=== PATIENT | female | born 1975 | race Caucasian/White ===

== ENCOUNTER → 2017-02-08 | Outpatient (REF) | payer BC | LOC: M LAB REF 13:07 | PROVIDERS: ATTEND Obstetrics & Gynecology | DX: Z12.4 Encounter for screening for malignant neoplasm of cervix (principal) ==

== ENCOUNTER → 2017-02-14 | Outpatient (CLI) | payer BC | LOC: M SMT 09:00 | PROVIDERS: ATTEND Obstetrics & Gynecology | DX: Z01.419 Encounter for gynecological examination (general) (routine) without abnormal findings (principal) ==

== ENCOUNTER → 2017-07-23 | Outpatient (CLI) | payer BC | LOC: M RAD 16:14 | DX: Z12.31 Encounter for screening mammogram for malignant neoplasm of breast (principal); Z78.0 Asymptomatic menopausal state | CPT/HCPCS: 77067 ==

== ENCOUNTER 2019-07-03 06:06 | Day surgery (SDC) | payer BC, OTHER ==
[~2019-07-03] VITALS: Ht 167.6 cm; Wt 73.0 kg
[~2019-07-03 06:06] MED LIST: MULTCAP PO; ceFAZolin SOD 2 GM in IV 1 EA IV ONE
[2019-07-03] MEDS ORDERED: ceFAZolin 2 GM/D5W 50 ML IV BAG (J0690 PER 500MG) As Ordered ONE (06:33)
[2019-07-03] MEDS ORDERED: propofoL 500 MG/50 ML VIAL As Ordered ONE (06:57)
[2019-07-03] MEDS ORDERED: LIDOCAINE 2% INJ 100 MG/5 ML SDV (FOR ANES.) As Ordered ONE (06:58)
[2019-07-03] MEDS ORDERED: dexameTHASONE 4 MG/ML 1ML VIAL (J1100) As Ordered ONE ×2 (07:00→07:21)
[2019-07-03] MEDS ORDERED: ONDANSETRON 4MG/2ML VIAL (J2405) As Ordered ONE (07:00)
[2019-07-03] MEDS ORDERED: MIDAZOLAM INJ 2 MG/2 ML VIAL (J2250) As Ordered ONE (07:00)
[2019-07-03] MEDS ORDERED: fentaNYL 100 MCG/2 ML INJECTION (J3010) As Ordered ONE (07:00)
[2019-07-03] MEDS ORDERED: ROPIvacaine 0.5% 30 ML INJECTION (J2795 PER 1MG) As Ordered ONE (07:09)
[2019-07-03] MEDS ORDERED: LIDOCAINE 2% MDV 20 ML VIAL As Ordered ONE (07:09)
[2019-07-03] MEDS ORDERED: methylPREDNISolone SUSP 40 MG/ML (DEPO-medrol) VIAL (J1030) As Ordered ONE (07:09)
[2019-07-03] MEDS ORDERED: BUPIVACAINE HCL 0.25% 30 ML VIAL As Ordered ONE (07:09)
[2019-07-03] MEDS ORDERED: BACITRACIN PWD 50,000 UNITS VIAL As Ordered ONE (07:10)
[2019-07-03] MEDS ORDERED: BUPIVACAINE HCL 0.5% 10 ML VIAL As Ordered ONE (07:21)
[2019-07-03] MEDS ORDERED: ROCURONIUM BROMIDE 50 MG/5 ML VIAL As Ordered ONE (07:23)
[2019-07-03 08:55] VITALS: BP 115/66
--- NOTE | 2019-07-03 09:14 | REP ---
Left foot series: Three views. History: Postop bunionectomy. No comparison images. Findings: Three views left foot are obtained through overlying postoperative dressing. There is a metallic pin is in place transfixing the distal first metatarsal osteotomy. There is some adjacent soft tissue swelling and emphysema. Electronically Signed by Aleksey Marina MD 07/03/2019 12:13 P
--- NOTE | 2019-07-03 18:26 | RO ---
DATE OF PROCEDURE: 07/03/2019 PREPROCEDURE DIAGNOSIS: Hallux valgus deformity left foot. POSTPROCEDURE DIAGNOSIS: Hallux valgus deformity left foot. OPERATIVE PROCEDURE: Rashaun bunionectomy internal screw fixation, 3.0 mm x 22 mm x 1 left foot. SURGEON: Mark Fleming DPM GRAVE DIGGER: None. ANESTHESIA: Local Monitored anesthesia care (MAC). HEMOSTASIS: Ankle pneumatic tourniquet at 200 mmHg for 35 minutes on the left ankle. HARDWARE UTILIZED: Arthrex headless 3.0 x 22 mm headless compression screw. DESCRIPTION OF PROCEDURE: On 07/03/2019, this 43-year-old female was taken from her hospital room to the operating room and placed on the operating room table in supine position. Following the induction of IV sedation and local and regional anesthesia, the left lower extremity was prepped and draped in the usual aseptic manner. Ankle pneumatic tourniquet was rapidly inflated, sterile drape was completed and the following procedure was performed. RASHAUN BUNIONECTOMY, INTERNAL SCREW FIXATION 3.0 MM X 22 MM X 1 LEFT FOOT: Attention was directed to the patient's left foot. There was noted to be a hallux valgus deformity. At this time, a 6 cm incision was placed over the first metatarsophalangeal joint. The incision was deepened to the subcutaneous tissues, and all coursing venous tributaries were identified, underscored, clamped, cut ligated, and electrocoagulated as necessary. A linear capsulotomy was performed in the same plane as the original skin incision. The capsule and periosteal structures were then dissected free in one continuous layer, dorsally, medially and laterally, thus creating a capsular periosteal type envelope. This delivered into view the hypertrophied medial eminence of the first metatarsal which was osteotomized from distal to plantar through and through. The was extirpated from the wound. Attention was directed into the first intermetatarsal space where dissection was carried down to the level of the fibular sesamoid where the conjoined tendon was sharply dissected free from the fibular sesamoid. Attention was directed to the medial surface of the first metatarsal where a V-shaped osteotomy was performed with a long plantar and short dorsal wing. Upon creation of this osteotomy, the capital fragment was transposed approximately 40% of the width of the shaft of the first metatarsal and fixated with a 3.0 x 22 mm headless compression screw. The osteotomy was noted to be stable in all three cardinal planes. The redundant cortical spike was then osteotomized from the dorsal to plantar, through and through, and the medial surface was rasped to a smooth contour. The wound was flushed with copious amounts of dilute bacitracin, neomycin and polymyxin B solution. Attention was directed toward closure where the capsular structures were coapted and maintained using #2-0 Monocryl in a simple interrupted type fashion. The subcutaneous tissues were coapted and maintained using #4-0 Monocryl in a simple interrupted type fashion. Skin incisions were coapted and maintained using #5-0 Monocryl in a continuous subcuticular type fashion. This was additionally reinforced with Steri-Strips. Following the completion of the surgical procedure, approximately 4 mg of dexamethasone sodium phosphorous was instilled proximal to the surgical site. Attention was directed toward bandaging, where a sterile compression bandage was applied consisting of Adaptic, 4 x 4s, 4 x 4 splints, Ilan, Kerlix and Coban. Ankle pneumatic tourniquet was rapidly deflated. Instantaneous capillary refill time was noted in digits 1 through 5 of the patients left foot. The patient having apparently tolerated the surgical procedure well, was taken from the OR to the recovery room for further monitoring by the anesthesia department. Postoperative instructions given upon discharge.
== END 2019-07-03 09:55 | disposition home or self-care (01) ==
LOC: M SDC 06:06
PROVIDERS: ATTEND Podiatrist
DX: M20.12 Hallux valgus (acquired), left foot (principal); Z88.5 Allergy status to narcotic agent; Z91.040 Latex allergy status
CPT/HCPCS: 28296; 73630; 76000; 81025; 88300; 97116; C1713; J0690; J1100; J2250; J2405; J3010

== ENCOUNTER → 2019-12-08 | Outpatient (CLI) | payer BC, OTHER ==
[~2019-12-08] MED LIST changes: -ceFAZolin SOD 2 GM in IV 1 EA IV ONE
[2019-12-08 11:11] LABS: BASO # 0.1 10^3/uL (0.0-0.2); EOS # 0.4 10^3/uL (0.0-0.5); EOS % 6.7 % (0.0-3.0); HEMATOCRIT 40.9 % (36.0-47.0); HEMOGLOBIN 13.3 g/dl (12.0-15.5); LYMPH # 1.6 10^3/uL (1.5-5.0); LYMPH % 25.7 % (24.0-44.0); MEAN CORPUSCULAR HEMOGLOBIN 31.4 pg (27.0-33.0); MEAN CORPUSCULAR HGB CONC 32.5 g/dl (32.0-36.5); MEAN CORPUSCULAR VOLUME 96.7 fl (80.0-96.0); MONO # 0.5 10^3/uL (0.0-0.8); MONO % 8.2 % (0.0-5.0); NEUTROPHILS # 3.6 10^3/uL (1.5-8.5); NEUTROPHILS % 58.2 % (36.0-66.0); PLATELET COUNT, AUTOMATED 271 10^3/uL (150-450); RED BLOOD COUNT 4.23 10^6/uL (4.00-5.40); WHITE BLOOD COUNT 6.2 10^3/uL (4.0-10.0)
[2019-12-08 11:40] LABS: ALBUMIN 3.7 GM/DL (3.2-5.2); ALT/SGPT 21 U/L (12-78); BILIRUBIN,TOTAL 0.4 MG/DL (0.2-1.0); BLOOD UREA NITROGEN 7 MG/DL (7-18); CALCIUM LEVEL 8.4 MG/DL (8.5-10.1); CARBON DIOXIDE LEVEL 26 MEQ/L (21-32); CHLORIDE LEVEL 108 MEQ/L (98-107); CHOLESTEROL LEVEL 170 MG/DL (<200); CHOLESTEROL RISK RATIO 4.594 (<5); CREATININE FOR GFR 0.72 MG/DL (0.55-1.30); FREE T4 0.86 NG/DL (0.76-1.46); GLOMERULAR FILTRATION RATE > 60.0 (>58); GLUCOSE, FASTING 84 MG/DL (70-100); HDL CHOLESTEROL 37 MG/DL (>40); LDL CHOLESTEROL 112 MG/DL (<100); NON-HDL-C 133 MG/DL; POTASSIUM SERUM 4.6 MEQ/L (3.5-5.1); SODIUM LEVEL 139 MEQ/L (136-145); TOTAL PROTEIN 6.8 GM/DL (6.4-8.2); TRIGLYCERIDES LEVEL 106 MG/DL (<150)
== END ==
LOC: M PLALAB 08:34
PROVIDERS: ATTEND Family Medicine
DX: Z13.29 Encounter for screening for other suspected endocrine disorder (principal); Z13.0 Encounter for screening for diseases of the blood and blood-forming organs and certain disorders involving the immune mechanism; Z13.220 Encounter for screening for lipoid disorders

== ENCOUNTER → 2020-01-13 | Outpatient (REF) | payer OTHER, BC | LOC: M LAB REF 15:00 | PROVIDERS: ATTEND Advanced Practice Midwife | DX: Z12.4 Encounter for screening for malignant neoplasm of cervix (principal) | CPT/HCPCS: 87624; G0123 ==

== ENCOUNTER → 2020-01-20 | Outpatient (CLI) | payer BC, OTHER ==
--- NOTE | 2020-01-21 06:33 | REPMRS ---
Patient History The patient states she had a clinical breast exam in December 2019. Family history of breast cancer at age 40 in maternal aunt, colorectal cancer in maternal grandmother, breast cancer at age 60 in paternal grandmother. Digital Woman Screen Mammo: January 20, 2020 - Exam #: [id number] Bilateral CC and MLO view(s) were taken. Technologist: Kaya Obregon, Technologist Prior study comparison: August 19, 2018, bilateral digital mammo screening bilat, performed at [facility]. July 23, 2017, bilateral digital mammo screening bilat, performed at [facility]. FINDINGS: There are scattered fibroglandular densities. The Volpara volumetric breast density category is:B. There has been no change in the appearance of the mammogram from the prior studies. There is a mild amount of scattered fibroglandular density which is fairly symmetric. There is no interval development of dominant mass, architectural distortion, or grouped microcalcification suggestive of malignancy. 3-D tomosynthesis shows no additional findings. Assessment: BI-RADS/ACR category 1 mammogram. Negative Mammogram. Recommendation Routine screening mammogram of both breasts in 1 year (for women over age 40). This patient's Lifetime Breast Cancer Risk is estimated at 16.1 %. This mammogram was interpreted with the aid of an FDA-approved computer-aided dectection system. Electronically Signed By: Danny Marina MD 01/21/20 0633
== END ==
LOC: M WHC 13:31
PROVIDERS: ATTEND Family Medicine
DX: Z12.31 Encounter for screening mammogram for malignant neoplasm of breast (principal)

== ENCOUNTER → 2020-01-20 | Outpatient (CLI) | payer BC ==
--- NOTE | 2020-01-28 17:30 | REP ---
PELVIC ULTRASOUND CLINICAL: Abnormal uterine bleeding, menorrhagia. TECHNIQUE: Transabdominal pelvic ultrasound followed by transvaginal examination for better evaluation of the endometrium and adnexa with color Doppler evaluation of the ovaries. FINDINGS: The bladder is under-distended and grossly normal in appearance measuring 5.3 x 4.5 x 3.8 cm. Heterogeneous anteverted uterus measures 8.4 x 4.3 x 6.3 cm. The endometrial complex measures 7 mm thickness. Anterior intramural fibroid measures 3.3 x 2.4 x 2.9 cm. Left ovary is not visualized on either transabdominal or transvaginal evaluation. The right ovary measures 2.9 x 2.0 x 2.6 cm (RI 0.46) and includes 2.1 x 1.9 x 1.7 cm complex likely physiologic cyst. No pelvic fluid or adnexal mass lesion. IMPRESSION: 1. Heterogeneous uterus with suspected anterior intramural fibroid. 2. Complex likely physiology right ovarian cyst. Left ovary not visualized. MTDD
== END ==
LOC: M WHC 13:25
PROVIDERS: ATTEND Advanced Practice Midwife
DX: N92.6 Irregular menstruation, unspecified (principal)

== ENCOUNTER → 2020-06-05 | Outpatient (CLI) | payer BC, OTHER ==
[~2020-06-05] MED LIST changes: +VITMTA PO
== END ==
LOC: M LABSMTC 10:13
PROVIDERS: ATTEND Anesthesiology
DX: Z01.812 Encounter for preprocedural laboratory examination (principal); Z20.822 Contact with and (suspected) exposure to COVID-19

== ENCOUNTER 2020-06-10 06:08 | Day surgery (SDC) | payer BC, OTHER ==
[~2020-06-10] VITALS: Ht 165.1 cm; Wt 72.6 kg
[~2020-06-10 06:08] MED LIST changes: +LR 1,000 ML IV ONE; +OXYC1TAB23 PO; +ceFAZolin SOD 2 GM in IV 1 EA IV ONE
--- OUTSIDE RECORDS SUMMARY | 2020-06-10 06:17 | CCD ---
Author Author [facility] Organization [facility] Address Unknown Phone Unavailable Care Team Providers Care Letterpress Setter Name Role Phone Mark Fleming DPM Unavailable Unavailable Bernadette, Mark DPM Unavailable Unavailable Bernadette, Mark DPM Unavailable Unavailable Bernadette, Mark DPM Unavailable Unavailable Bernadette, Mark DPM Unavailable Unavailable Bernadette, Mark DPM Unavailable Unavailable Bernadette, Mark DPM Unavailable Unavailable Bernadette, Mark DPM Unavailable Unavailable Bernadette, Mark DPM Unavailable Unavailable Bernadette, Mark DPM Unavailable Unavailable Bernadette, Mark DPM Unavailable Unavailable Bernadette, Mark DPM Unavailable Unavailable Bernadette, Mark DPM Unavailable Unavailable Bernadette, Mark DPM Unavailable Unavailable Bernadette, Mark DPM Unavailable Unavailable Bernadette, Mark DPM Unavailable Unavailable Bernadette, Mark DPM Unavailable Unavailable Bernadette, Mark DPM Unavailable Unavailable Bernadette, Mark DPM Unavailable Unavailable Bernadette, Mark DPM Unavailable Unavailable Bernadette, Mark DPM Unavailable Unavailable Bernadette, Mark DPM Unavailable Unavailable Bernadette, Mark DPM Unavailable Unavailable Bernadette, Mark DPM Unavailable Unavailable Bernadette, Mark DPM Unavailable Unavailable Bernadette, Mark DPM Unavailable Unavailable Bernadette, Mark DPM Unavailable Unavailable Bernadette, Mark DPM Unavailable Unavailable Bernadette, Mark DPM Unavailable Unavailable Bernadette, Mark DPM Unavailable Unavailable Bernadette, Mark DPM Unavailable Unavailable Bernadette, Mark DPM Unavailable Unavailable BUCKY-ALBAN, KYARA DO Unavailable Unavailable BUCKY-ALBAN, KYAAR DO Unavailable Unavailable BUCKY-ALBAN, KYARA DO Unavailable Unavailable BUCKY-ALBAN, KYARA DO Unavailable Unavailable BUCKY-ALBAN, KYARA DO Unavailable Unavailable BUCKY-ALBAN, KYARA DO Unavailable Unavailable BUCKY-ALBAN, KYARA DO Unavailable Unavailable BUCKY-ALBAN, KYARA DO Unavailable Unavailable BUCKY-ALBAN, KYARA DO Unavailable Unavailable BUCKY-ALBAN, KYARA DO Unavailable Unavailable BUCKY-ALBAN, KYARA DO Unavailable Unavailable BUCKY-ALBAN, KYARA DO Unavailable Unavailable BUCKY-ALBAN, KYARA DO Unavailable Unavailable BUCKY-ALBAN, KYARA DO Unavailable Unavailable BUCKY-ALBAN, KYARA DO Unavailable Unavailable BUCKY-ALBAN, KYARA DO Unavailable Unavailable BUCKY-ALBAN, KYARA DO Unavailable Unavailable BUCKY-ALBAN, KYARA DO Unavailable Unavailable BUCKY-ALBAN, KYARA DO Unavailable Unavailable BUCKY-ALBAN, KYARA DO Unavailable Unavailable BUCKY-ALBAN, KYARA DO Unavailable Unavailable BUCKY-ALBAN, KYARA DO Unavailable Unavailable BUCKY-ALBAN, KYARA DO Unavailable Unavailable BUCKY-ALBAN, KYARA DO Unavailable Unavailable BUCKY-ALBAN, KYARA DO Unavailable Unavailable BUCKY-ALBAN, KYARA DO Unavailable Unavailable BUCKY-ALBAN, KYARA DO Unavailable Unavailable BUCKY-ALBAN, KYARA DO Unavailable Unavailable BUCKY-ALBAN, KYARA DO Unavailable Unavailable BUCKY-ALBAN, KYARA DO Unavailable Unavailable BUCKY-ALBAN, KYARA DO Unavailable Unavailable BUCKY-ALBAN, KYARA DO Unavailable Unavailable BUCKY-ALBAN, KYARA DO Unavailable Unavailable BUCKY-ALBAN, KYARA DO Unavailable Unavailable BUCKY-ALBAN, KYARA DO Unavailable Unavailable BUCKY-ALBAN, KYARA DO Unavailable Unavailable BUCKY-ALBAN, KYARA DO Unavailable Unavailable BUCKY-ALBAN, KYARA DO Unavailable Unavailable BUCKY-ALBAN, KYARA DO Unavailable Unavailable BUCKY-ALBAN, KYARA DO Unavailable Unavailable BUCKY-ALBAN, KYARA DO Unavailable Unavailable BUCKY-ALBAN, KYARA DO Unavailable Unavailable BUCKY-ALBAN, KYARA DO Unavailable Unavailable BUCKY-ALBAN, KYARA DO Unavailable Unavailable BUCKY-ALBAN, KYARA DO Unavailable Unavailable BUCKY-ALBAN, KYARA DO Unavailable Unavailable BUCKY-ALBAN, KYARA DO Unavailable Unavailable BUCKY-ALBAN, KYARA DO Unavailable Unavailable BUCKY-ALBAN, KYARA DO Unavailable Unavailable BUCKY-ALBAN, KYARA DO Unavailable Unavailable BUCKY-ALBAN, KYARA DO Unavailable Unavailable BUCKY-ALBAN, KYARA DO Unavailable Unavailable BUCKY-ALBAN, KYARA DO Unavailable Unavailable BUCKY-ALBAN, KYARA DO Unavailable Unavailable BUCKY-ALBAN, KYARA DO Unavailable Unavailable BUCKY-ALBAN, KYARA DO Unavailable Unavailable BUCKY-ALBAN, KYARA DO Unavailable Unavailable BUCKY-ALBAN, KYARA DO Unavailable Unavailable BUCKY-ALBAN, KYARA DO Unavailable Unavailable BUCKY-ALBAN, KYARA DO Unavailable Unavailable BUCKY-ALBAN, KYARA DO Unavailable Unavailable BUCKY-ALBAN, KYARA DO Unavailable Unavailable BUCKY-ALBAN, KYARA DO Unavailable Unavailable BUCKY-ALBAN, KYARA DO Unavailable Unavailable BUCKY-ALBAN, KYARA DO Unavailable Unavailable BUCKY-ALBAN, KYARA DO Unavailable Unavailable BUCKY-ALBAN, KYARA DO Unavailable Unavailable BUCKY-ALBAN, KYARA DO Unavailable Unavailable BUCKY-ALBAN, KYARA DO Unavailable Unavailable BUCKY-ALBAN, KYARA DO Unavailable Unavailable BUCKY-ALBAN, KYARA DO Unavailable Unavailable BUCKY-ALBAN, KYARA DO Unavailable Unavailable BUCKY-ALBAN, YKARA DO Unavailable Unavailable BUCKY-ALBAN, KYARA DO Unavailable Unavailable BUCKY-ALBAN, KYARA DO Unavailable Unavailable BUCKY-ALBAN, KYARA DO Unavailable Unavailable BUCKY-ALBAN, KYARA DO Unavailable Unavailable BUCKY-ALBAN, KYARA DO Unavailable Unavailable BUCKY-ALBAN, KYARA DO Unavailable Unavailable BUCKY-ALBAN, KYARA DO Unavailable Unavailable BUCKY-ALBAN, KYARA DO Unavailable Unavailable BUCKY-ALBAN, KYRAA DO Unavailable Unavailable BUCKY-ALBAN, KYARA DO Unavailable Unavailable BUCKY-ALBAN, KYARA DO Unavailable Unavailable BUCKY-ALBAN, KYARA DO Unavailable Unavailable BUCKY-ALBAN, KYARA DO Unavailable Unavailable BUCKY-ALBAN, KYARA DO Unavailable Unavailable BUCKY-ALBAN, KYARA DO Unavailable Unavailable BUCKY-ALBAN, KYARA DO Unavailable Unavailable BUCKY-ALBAN, KYARA DO Unavailable Unavailable BUCKY-ALBAN, KYARA DO Unavailable Unavailable BUCKY-ALBAN, KYARA DO Unavailable Unavailable BUCKY-ALBAN, KYARA DO Unavailable Unavailable BUCKY-ALBAN, KYARA DO Unavailable Unavailable BUCKY-ALBAN, KYARA DO Unavailable Unavailable BUCKY-ALBAN, KYARA DO Unavailable Unavailable BUCKY-ALBAN, KYARA DO Unavailable Unavailable BUCKY-ALBAN, KYARA DO Unavailable Unavailable BUCKY-ALBAN, KYARA DO Unavailable Unavailable BUCKY-ALBAN, KYARA DO Unavailable Unavailable BUCKY-ALBAN, KYARA DO Unavailable Unavailable BUCKY-ALBAN, KYARA DO Unavailable Unavailable BUCKY-ALBAN, KYARA DO Unavailable Unavailable BUCKY-ALBAN, KYARA DO Unavailable Unavailable BUCKY-ALBAN, KYARA DO Unavailable Unavailable BUCKY-ALBAN, KYARA DO Unavailable Unavailable BUCKY-ALBAN, KYARA DO Unavailable Unavailable BUCKY-ALBAN, KYARA DO Unavailable Unavailable BUCKY-ALBAN, KYARA DO Unavailable Unavailable BUCKY-ALBAN, KYARA DO Unavailable Unavailable BUCKY-ALBAN, KYARA DO Unavailable Unavailable BUCKY-ALBAN, KYARA DO Unavailable Unavailable BUCKY-ALBAN, KYARA DO Unavailable Unavailable BUCKY-ALBAN, KYARA DO Unavailable Unavailable BUCKY-ALBAN, KYARA DO Unavailable Unavailable BUCKY-ALBAN, KYARA DO Unavailable Unavailable BUCKY-ALBAN, KYARA DO Unavailable Unavailable BUCKY-ALBAN, KYARA DO Unavailable Unavailable BUCKY-ALBAN, KYARA DO Unavailable Unavailable BUCKY-ALBAN, KYARA DO Unavailable Unavailable BUCKY-ALBAN, KYARA DO Unavailable Unavailable BUCKY-ALBAN, KYARA DO Unavailable Unavailable BUCKY-ALBAN, KYARA DO Unavailable Unavailable BUCKY-ALBAN, KYARA DO Unavailable Unavailable BUCKY-ALBAN, KYARA DO Unavailable Unavailable BUCKY-ALBAN, KYARA DO Unavailable Unavailable BUCKY-ALBAN, KYARA DO Unavailable Unavailable BUCKY-ALBAN, KYARA DO Unavailable Unavailable BUCKY-ALBAN, KYARA DO Unavailable Unavailable BUCKY-ALBAN, KYARA DO Unavailable Unavailable BUCKY-ALBAN, KYARA DO Unavailable Unavailable BUCKY-ALBAN, KYARA DO Unavailable Unavailable BUCKY-ALBAN, KYARA DO Unavailable Unavailable BUCKY-ALBAN, KYARA DO Unavailable Unavailable BUCKY-ALBAN, KYARA DO Unavailable Unavailable BUCKY-ALBAN, KYARA DO Unavailable Unavailable BUCKY-ALBAN, KYARA DO Unavailable Unavailable BUCKY-ALBAN, KYARA DO Unavailable Unavailable BUCKY-ALBAN, KYARA DO Unavailable Unavailable BUCKY-ALBAN, KYARA DO Unavailable Unavailable BUCKY-ALBAN, KYARA DO Unavailable Unavailable BUCKY-ALABN, KYARA DO Unavailable Unavailable BUCKY-ALBAN, KYARA DO Unavailable Unavailable BUCKY-ALBAN, KYARA DO Unavailable Unavailable BUCKY-ALBAN, KYARA DO Unavailable Unavailable BUCKY-ALBAN, KYARA DO Unavailable Unavailable BUCKY-ALBAN, KYARA DO Unavailable Unavailable BUCKY-ALBAN, KYARA DO Unavailable Unavailable BUCKY-ALBAN, KYARA DO Unavailable Unavailable BUCKY-ALBAN, KYARA DO Unavailable Unavailable BUCKY-ALBAN, KYARA DO Unavailable Unavailable BUCKY-ALBAN, KYARA DO Unavailable Unavailable BUCKY-ALBAN, KYARA DO Unavailable Unavailable BUCKY-ALBAN, KYARA DO Unavailable Unavailable BUCKY-ALBAN, KYARA DO Unavailable Unavailable BUCKY-ALBAN, KYARA DO Unavailable Unavailable BUCKY-ALBAN, KYARA DO Unavailable Unavailable BUCKY-ALBAN, KYARA DO Unavailable Unavailable BUCKY-ALBAN, KYARA DO Unavailable Unavailable BUCKY-ALBAN, KYARA DO Unavailable Unavailable BUCKY-ALBAN, KYARA DO Unavailable Unavailable BUCKY-ALBAN, KYARA DO Unavailable Unavailable Hadian, Sorin Unavailable Unavailable Hadian, Sorin Unavailable Unavailable Hadian, Sorin Unavailable Unavailable Hadian, Sorin Unavailable Unavailable Hadian, Sorin Unavailable Unavailable Hadian, Sorin Unavailable Unavailable Hadian, Sorin Unavailable Unavailable Hadian, Sorin Unavailable Unavailable Hadian, Sorin Unavailable Unavailable Hadian, Sorin Unavailable Unavailable Hadian, Sorin Unavailable Unavailable Hadian, Sorin Unavailable Unavailable Hadian, Sorin Unavailable Unavailable Hadian, Sorin Unavailable Unavailable Hadian, Sorin Unavailable Unavailable Hadian, Sorin Unavailable Unavailable Hadian, Sorin Unavailable Unavailable Hadian, Sorin Unavailable Unavailable Hadian, Sorin Unavailable Unavailable Hadian, Sorin Unavailable Unavailable Hadian, Sorin Unavailable Unavailable Hadian, Sorin Unavailable Unavailable Hadian, Sorin Unavailable Unavailable Hadian, Sorin Unavailable Unavailable Hadian, Sorin Unavailable Unavailable Hadian, Sorin Unavailable Unavailable Hadian, Sorin Unavailable Unavailable Hadian, Sorin Unavailable Unavailable Hadian, Sorin Unavailable Unavailable Hadian, Sorin Unavailable Unavailable Hadian, Sorin Unavailable Unavailable Hadian, Sorin Unavailable Unavailable Hadian, Sorin Unavailable Unavailable Re-disclosure Warning The records that you are about to access may contain information from federally-assisted alcohol or drug abuse programs. If such information is present, then the following federally mandated warning applies: This information has been disclosed to you from records protected by federal confidentiality rules (42 CFR part 2). The federal rules prohibit you from making any further disclosure of this information unless further disclosure is expressly permitted by the written consent of the person to whom it pertains or as otherwise permitted by 42 CFR part 2. A general authorization for the release of medical or other information is NOT sufficient for this purpose. The Federal rules restrict any use of the information to criminally investigate or prosecute any alcohol or drug abuse patient.The records that you are about to access may contain highly sensitive health information, the redisclosure of which is protected by Article 27-F of the [facility] Public Health law. If you continue you may have access to information: Regarding HIV / AIDS; Provided by facilities licensed or operated by the [facility] Office of Mental Health; or Provided by the [facility] Office for People With Developmental Disabilities. If such information is present, then the following [facility] mandated warning applies: This information has been disclosed to you from confidential records which are protected by state law. State law prohibits you from making any further disclosure of this information without the specific written consent of the person to whom it pertains, or as otherwise permitted by law. Any unauthorized further disclosure in violation of state law may result in a fine or prison sentence or both. A general authorization for the release of medical or other information is NOT sufficient authorization for further disc losure. Family History Family Member Name Family Member Gender Family Member Status Date o f Status Description Data Source(s) Unknown Unknown Problem [facility] ([facility]) Unknown Male Problem [facility] ([facility]) Unknown Male Problem [facility] ([facility]) Encounters Encounter Providers Location Date Indications Data Source(s ) Unknown [id number] [facility] [address] 06/08/2020 12:00:00 AM EST eCW1 ([facility]) Outpatient Attender: Sorin Asencio ED-LABPNP 0 09:29:00 AM EST - 05/24/2020 09:30:00 AM EST [id number] [facility] [id number] Patient discharged. Outpatient Attender: KYARA TAM DO [facility] 12/03/2019 11:30:00 AM [facility] Outpatient Referrer: KYARA TAM DO 07/09/2019 01 :20:00 PM EST [facility] Radiology Imaging Outpatient Attender: Mark lFeming DPM ED-LAB 08:14:00 AM EST - 06/13/2019 08:15:00 AM EST M22.12 M79.672 [facility] M22.12 M79.672 Patient discharged. Immunizations Vaccine Date Status Description Data Source(s) Tdap 12/03/2019 12:02:00 PM EDT [facility] Medications Medication Brand Name Start Date Product Form Dose Route Admi nistrative Instructions Pharmacy Instructions Status Indications Reaction Description Data Source(s) 5-325 mg 06/08/2020 12:00:00 AM EST tablet 20 TAKE ONE TO TWO TABLETS BY MOUTH EVERY 6 HOURS NEEDED FOR PAIN MAXIMUM DAILY DOSE = 6 TAKE ONE TO TWO TABLETS BY MOUTH EVERY 6 HOURS NEEDED FOR PAIN MAXIMUM DAILY DOSE = 6 SOLD: 06/08/2020 [facility] Loratadine 10 MG Oral Capsule [Claritin] Claritin 12/03/2019 12 :00:00 AM EDT ORAL active [facility] ([facility]) Immunization Administration Single Or Combination 12/03/2019 12:00:00 AM EDT completed [facility] ([facility]) Medication administered onsite Immunization Adminstration 2+ Single Or Combination 12/03/2019 12:00:00 AM EDT completed [facility] ([facility]) Medication administered onsite 5-325 mg 06/11/2019 12:00:00 AM EST tablet 20 TAKE 1-2 TABLETS BY MOUTH EVERY 6 HOURS NEEDED FOR SEVERE PAIN MAXIMUM DAILY DOSE = 6 TAKE 1-2 TABLETS BY MOUTH EVERY 6 HOURS NEEDED FOR SEVERE PAIN MAXIMUM DAILY DOSE = 6 SOLD: 06/13/2019 [facility] Insurance Providers Payer name Policy type / Coverage type Policy ID Covered libertarian ID Covered libertarian's relationship to [place] Policy [place] Plan Information [facility] [id number] BCBS [place] [id number] [place] [id number] LP [id number] [facility] O [id number] S [id number] [place] WATN PPO [id number] SP [id number] EMPIRE ([facility]) O [id number] P [id number] [employer] BCBS Medigap Part B [id number] Self [id number] [facility] [employer] Maintenance Organization (HMO) [id number] Self [id number] [place] Plan Medigap Part B [id number] [employer] U/W Commercial [id number] Self [id number] [employer] BCBS B [id number] S [id number] [place]AT[place] PPO [id number] SP [id number] [employer] BCBS B [id number] P [id number] [employer] U/W Commercial [id number] Self [id number] [employer] Health Maintenance Organization (HMO) [id number] Self [id number] [employer] Commercial [id number] Self [id number] [employer] Commercial [id number] Self [id number] [facility] O [id number] S [id number] [facility] [id number] 2 [id number] [facility] DIV [id number] Problems, Conditions, and Diagnoses Code Display Name Description Problem Type Effective Dates Data Source(s) M79.672 Pain in left foot PAIN IN LEFT FOOT Diagnosis 06/13 08:14:00 AM [facility] 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, 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, LEFT KNEE Diagnosis 06/13/2019 08:14:00 AM [facility] spital Surgeries/Procedures Procedure Description Date Indications Data Source(s) COLLECTION VENOUS BLOOD VENIPUNCTURE ROUTINE VENIPUNCTURE 12:00:00 AM [facility] BLOOD COUNT COMPLETE AUTO&AUTO DIFRNTL WBC COUNT COMPLETE CB C W/AUTO DIFF WBC 06/13/2019 12:00:00 AM [facility] BASIC METABOLIC PANEL CALCIUM TOTAL METABOLIC PANEL TOTAL CA 06/13/2019 12:00:00 AM [facility] Results ID Date Data Source [id number] 06/05/2020 10:00:00 AM EST [facility] Name Value Range Interpretation Code Description Data Patsy rce(s) Supporting Document(s) SARS coronavirus 2 RNA Not Detected [facility] This lab was ordered by [facility] and reported by [facility]. ID Date Data Source [id number] 05/30/2020 10:14:00 AM EST [facility] Name Value Range Interpretation Code Description Data Patsy rce(s) Supporting Document(s) Respiratory specimen severe acute respir atory syndrome coronavirus 2 (SARS-CoV-2) RNA [facility] This lab was ordered by [facility] and reported by . ID Date Data Source [id number] 05/25/2020 09:58:00 AM [facility] Name Value Range Interpretation Code Description Data Patsy rce(s) Supporting Document(s) SARS-CoV-2 RNA INHOUSE Negative Normal (applies to non-n umeric results) [facility] THIS IS A [facility] REPORTABLE COMMUNICABLE DISEASE. Testing was performed using the [employer] COVID-19 MDx Assay. This test has been authorized by FDA under an (Emergency Use Authorization) EUA for use by authorized laboratories for individuals who are suspected of COVID-19 by their healthcare provider. This test is only authorized for the duration of the declaration that circumstances exist justifying the authorization of emergency use of in vitro diagnostic tests for detection and/or diagnosis of SARS-CoV-2. Methodology: Endpoint RT-PCR. Fact sheets for this EUA assay can be found at the following links: Providers: https://www.Dctio.gov/media/603663/download Patients : https://www.Dctio.gov/media/384136/download THIS IS A [facility] REPORTABLE COMMUNICABLE DISEASE Negative results do not preclude SARS-CoV-2 infection and should not be used as the sole basis for patient management decisions. Negative results must be combined with clinical observations,patient history, and epidemiological information. ID Date Data Source [id number] 12/08/2019 08:40:00 AM EDT [facility] ([facility]) Name Value Range Interpretation Code Description Data Patsy rce(s) Supporting Document(s) Triglycerides Level 106 mg/dL Normal (applies to non-nume georgi results) [facility] ([facility]) LDL Cholesterol 112 mg/dL Above high normal [facility] ([facility]) Cholesterol Level 170 mg/dL Normal (applies to non-numeri c results) [facility] ([facility]) HDL Cholesterol 37 mg/dL Below low normal [facility] ([facility]) Cholesterol Risk Ratio 4.594 Normal (applies to non-n umeric results) [facility] ([facility]) Non-HDL-C 133 mg/dL Normal (applies to non-numeric resul ts) [facility] ([facility]) ID Date Data Source [id number] 12/08/2019 08:40:00 AM EDT [facility] ([facility]) Name Value Range Interpretation Code Description Data Patsy rce(s) Supporting Document(s) White Blood Count 6.2 10 4.0-10.0 Normal (applies to non-numeri c results) [facility] ([facility]) Red Blood Count 4.23 10 4.00-5.40 Normal (applies to non-numeric results) [facility] ([facility]) Hematocrit 40.9 % 36.0-47.0 Normal (applies to non-numeric resul ts) [facility] ([facility]) Hemoglobin 13.3 g/dL 12.0-15.5 Normal (applies to non-numeric resul ts) [facility] ([facility]) Mean Corpuscular Volume 96.7 fl 80.0-96.0 Above high normal [facility] ([facility]) Mean Corpuscular HGB Conc 32.5 g/dL 32.0-36.5 Normal (applies to non-numeric results) [facility] ([facility]) Mean Corpuscular Hemoglobin 31.4 pg 27.0-33.0 Norm al (applies to non-numeric results) [facility] ([facility]) Red Cell Distribution Width 12.7 % 11.5-14.5 Norm al (applies to non-numeric results) [facility] ([facility]) Neutrophils % 58.2 % 36.0-66.0 Normal (applies to non-numeric re sults) [facility] ([facility]) Lymph % 25.7 % 24.0-44.0 Normal (applies to non-numeric resul ts) [facility] Platelet Count, Automated 271 10 150-450 Normal (applies to non-numeric results) [facility] ([facility]) [place] % 8.2 % 0.0-5.0 Above high normal [facility] ([facility]) Immature Granulocyte % 0.2 % 0-3.0 Normal (applies to non-n umeric results) [facility] ([facility]) Eos % 6.7 % 0.0-3.0 Above high normal [facility] ([facility]) Baso % 1.0 % 0.0-1.0 Normal (applies to non-numeric resul ts) [facility] ([facility]) Neutrophils # 3.6 10 1.5-8.5 Normal (applies to non-numeric re sults) [facility] ([facility]) Nucleated Red Blood Cell % 0.0 % 0-0 Normal (applies to n on-numeric results) [facility] ([facility]) Eos # 0.4 10 0.0-0.5 Normal (applies to non-numeric resul ts) [facility] ([facility]) Lymph # 1.6 10 1.5-5.0 Normal (applies to non-numeric resul ts) [facility] ([facility]) Baso # 0.1 10 0.0-0.2 Normal (applies to non-numeric resul ts) [facility] ([facility]) [place] # 0.5 10 0.0-0.8 Normal (applies to non-numeric resul ts) [facility] ([facility]) ID Date Data Source [id number] 12/08/2019 08:40:00 AM EDT [facility] Name Value Range Interpretation Code Description Data Patsy rce(s) Supporting Document(s) Thyroid Stimulating Hormone 1.210 uIU/ML 0.358-3.740 Norm al (applies to non- numeric results) [facility] Free T4 0.86 ng/dL 0.76-1.46 Normal (applies to non-numeric resul ts) [facility] ID Date Data Source [id number] 12/08/2019 08:40:00 AM EDT [facility] Name Value Range Interpretation Code Description Data Patsy rce(s) Supporting Document(s) Blood Urea Nitrogen 7 mg/dL 7-18 Normal (applies to non-nume georgi results) [facility] Glucose, Fasting 84 mg/dL 70-100 Normal (applies to non-numeric results) [facility] Creatinine For GFR 0.72 mg/dL 0.55-1.30 Normal (applies to non -numeric results) [facility] Glomerular Filtration Rate Laboratory test result Normal (applies to non- numeric results) [facility] <content>Units are mL/min/1.73 m2</content>
<content></content>
<content>Chronic Kidney Disease Staging per NKF:</content>
<content></content>
<content>Stage I & II GFR >=60 Normal to Mildly Decreased</content>
<content>Stage III GFR 30- 59 Moderately Decreased</content>
<content>Stage IV GFR 15-29 Severely Decreased</content>
<content>Stage V GFR <15 Very Little GFR Left</content>
<content>ESRD GFR <15 on ACCOUNTING GENERALIST</content>
<content></content> Sodium Level 139 meq/L 136-145 Normal (applies to non-numeric res ults) [facility] ([facility]) Potassium Serum 4.6 meq/L 3.5-5.1 Normal (applies to non-numeric results) [facility] ([facility]) Carbon Dioxide Level 26 meq/L 21-32 Normal (applies to non-num heidy results) [facility] ([facility]) Chloride Level 108 meq/L 98-107 Above high normal [facility] ([facility]) Anion Gap 5 meq/L 8-16 Below low normal [facility] ( [facility]) Calcium Level 8.4 mg/dL 8.5-10.1 Below low normal [facility] ([facility]) Ast/Sgot 14 U/L 7-37 Normal (applies to non-numeric resul ts) [facility] ([facility]) Bilirubin,Total 0.4 mg/dL 0.2-1.0 Normal (applies to non-numeric results) [facility] ([facility]) Alkaline Phosphatase 46 U/L 45-117 Normal (applies to non-num heidy results) [facility] ([facility]) Alt/SGPT 21 U/L 12-78 Normal (applies to non-numeric resul ts) [facility] ([facility]) Total Protein 6.8 GM/DL 6.4-8.2 Normal (applies to non-numeric re sults) [facility] ([facility]) Albumin 3.7 GM/DL 3.2-5.2 Normal (applies to non-numeric resul ts) [facility] ([facility]) Albumin/Globulin Ratio 1.2 1.2-2.2 Normal (applies to non-n umeric results) [facility] ([facility]) ID Date Data Source [id number] 06/13/2019 09:58:00 AM [facility] Name Value Range Interpretation Code Description Data Patsy rce(s) Supporting Document(s) Sodium 141 mmol/L 136-145 Normal (applies to non-numeric resul ts) [facility] Potassium 3.5-5.1 Normal (applies to non-numeric resul ts) [facility] Chloride 104 mmol/L 98-107 Normal (applies to non-numeric resul ts) [facility] Carbon Dioxide CO2 21-32 Normal (applies to non-numer ic results) [facility] Anion Gap 5.0-16.0 Normal (applies to non-numeric resul ts) [facility] BUN 12 mg/dL 7-18 Normal (applies to non-numeric results) [facility] Creatinine,Serum 0.7-1.2 Normal (applies to non-numeric results) [facility] GFR >60 Normal (applies to non-numeric results) [facility] Glucose Level 85 mg/dL 60-99 Normal (applies to non-numeric re sults) [facility] Reference range is only applicable when patient is fasting Note the following drug interference: Sulfasalazine Sulfapyridine Can see falsely depressed Can see falsely elevated result with up to 17% results with up to 11% decrease in measurement increase in measurement Recommend patients be collected for this test prior to administration of either drug. Calcium 8.5-10.1 Normal (applies to non-numeric resul ts) [facility] ID Date Data Source [id number] 06/13/2019 09:20:00 AM [facility] Name Value Range Interpretation Code Description Data Patsy rce(s) Supporting Document(s) White Blood Count 3.5-10.5 Normal (applies to non-numeri c results) [facility] Red Blood Count 3.90-5.00 Normal (applies to non-numeric results) [facility] Hemoglobin 12.0-15.5 Normal (applies to non-numeric resul ts) [facility] Hematocrit 34.9-44.5 Normal (applies to non-numeric resul ts) [facility] Mean Corpuscular Volume 81.2-95.1 Normal (applies to non- numeric results) [facility] Mean Corpuscular Hgb 25.6-32.2 Normal (applies to non-num heidy results) [facility] Mean Corpuscular Hgb Conc 32.0-36.0 Normal (applies to no n-numeric results) [facility] Red Cell Distribution Width 11.9-15.5 Normal (appli es to non-numeric results) [facility] Platelet Count 325 x10 3/uL 150-450 Normal (applies to non-numeric results) [facility] Mean Platelet Volume 9.4-12.4 Normal (applies to non-num heidy results) [facility] Neutrophils% (Auto) 31.0-71.0 Normal (applies to non-nume georgi results) [facility] Lymphocytes% (Auto) 20.0-55.0 Normal (applies to non-nume georgi results) [facility] Monocytes% (Auto) 4.0-12.0 Normal (applies to non-numeri c results) [facility] Eosinophils% (Auto) 1.0-8.0 Normal (applies to non-nume georgi results) [facility] Basophils% (Auto) 0.0-2.0 Normal (applies to non-numeri c results) [facility] Immature Granulocytes% (Auto) 0.0-2.0 Normal (eulalio lies to non-numeric results) [facility] Neutrophils# (Auto) 1.50-6.20 Normal (applies to non-nume georgi results) [facility] Lymphocytes# (Auto) 1.20-4.00 Normal (applies to non-nume georgi results) [facility] Monocytes# (Auto) 0.00-0.90 Normal (applies to non-numeri c results) [facility] Eosinophils# (Auto) 0.00-0.50 Normal (applies to non-nume georgi results) [facility] Basophils# (Auto) 0.00-0.20 Normal (applies to non-numeri c results) [facility] Immature Granulocytes# (Auto) 0.00-7.00 No rmal (applies to non-numeric results) [facility] Procedure Social History Code Duration Value Status Description Data Source(s ) Smoking 05/11/2020 12:00:00 AM EST Never Smoker completed Never S liseth [id number] ([facility]) Smoking 12/03/2019 12:00:00 AM EDT Patient has never smoked co mpleted Patient has never smoked [facility] ([facility]) Vital Signs ID Date Data Source UNK Name Value Range Interpretation Code Description Data Source(s) Oxygen saturation in Arterial blood by Pulse oximetry 98 % 98 % [facility] Body temperature 98.5 [degF] 98.5 [degF] [facility] ([facility]) Respiratory rate 16 /min 16 /min [facility] ( [facility]) Heart rate 82 /min 82 /min [facility] ([facility]) Body mass index (BMI) [Ratio] 25.3 kg/m2 25.3 k g/m2 [facility] ([facility]) Body weight 155.12 [lb_av] 155.12 [lb_av] [facility] ([facility]) Body height 65.6 [in_i] 65.6 [in_i] [facility] ([facility]) 5'5.60" Diastolic blood pressure 78 mm[Hg] 78 mm[Hg] [facility] ([facility]) Systolic blood pressure 124 mm[Hg] 124 mm[Hg] [facility] ([facility])
[2020-06-10 06:34] LABS: HEMATOCRIT 41.2 % (36.0-47.0); HEMOGLOBIN 13.3 g/dl (12.0-15.5); MEAN CORPUSCULAR HEMOGLOBIN 31.1 pg (27.0-33.0); MEAN CORPUSCULAR HGB CONC 32.3 g/dl (32.0-36.5); MEAN CORPUSCULAR VOLUME 96.3 fl (80.0-96.0); PLATELET COUNT, AUTOMATED 271 10^3/uL (150-450); RED BLOOD COUNT 4.28 10^6/uL (4.00-5.40); WHITE BLOOD COUNT 6.7 10^3/uL (4.0-10.0)
[2020-06-10] MEDS ORDERED: BUPIVACAINE HCL 0.25% 30ML VIAL As Ordered ONE (07:11)
[2020-06-10] MEDS ORDERED: fentaNYL 100 MCG/2 ML INJECTION (J3010) As Ordered ONE (08:34)
[2020-06-10] MEDS ORDERED: ACETAMINOPHEN 1000MG 100ML IV BTL (OFIRMEV) (J0131 PER 10MG) As Ordered ONE (08:34)
[2020-06-10] MEDS ORDERED: LIDOCAINE 2% 100MG/5ML SDV (FOR ANES.) As Ordered ONE (08:34)
[2020-06-10] MEDS ORDERED: propofoL 500 MG/50 ML VIAL As Ordered ONE (08:34)
[2020-06-10] MEDS ORDERED: KETAMINE HCL 200 MG/20 ML VIAL As Ordered ONE (08:34)
[2020-06-10] MEDS ORDERED: KETOROLAC 60MG 2ML VIAL As Ordered ONE (08:34)
[2020-06-10] MEDS ORDERED: ePHEDrine SULFATE 25 MG/5 ML(5MG/ML) SYRINGE As Ordered ONE (08:34)
[2020-06-10] MEDS ORDERED: propofoL 200 MG/20 ML VIAL As Ordered ONE (08:34)
[2020-06-10] MEDS ORDERED: HYDROmorphone HCL 2 MG/ML 1ML VIAL (J1170) As Ordered ONE (08:34)
[2020-06-10] MEDS ORDERED: ROCURONIUM BROMIDE 50 MG/5 ML VIAL As Ordered ONE (08:34)
[2020-06-10] MEDS ORDERED: ONDANSETRON 4MG/2ML VIAL As Ordered ONE (08:34)
[2020-06-10] MEDS ORDERED: MIDAZOLAM INJ 2MG/2ML VIAL (J2250 PER 1MG) As Ordered ONE (08:34)
[2020-06-10] MEDS ORDERED: GLYCOPYRROLATE INJ 0.2 MG/ML 2 ML VIAL As Ordered ONE (08:34)
[2020-06-10] MEDS ORDERED: SUGAMMADEX SODIUM 500 MG/5 ML VIAL (BRIDION) As Ordered ONE (08:34)
[2020-06-10] MEDS ORDERED: dexameTHASONE 4 MG/ML 1ML VIAL (J1100 PER 1MG) As Ordered ONE (08:34)
--- NOTE | 2020-06-10 09:48 | ROOPDOC ---
[facility] Report Of Operation Report of Operation DATE OF PROCEDURE: 06/10/20 PREPROCEDURE DIAGNOSES: 1. Abnormal uterine bleeding. POSTPROCEDURE DIAGNOSES: 1. Abnormal uterine bleeding. PROCEDURES PERFORMED: 1. Robotic-assisted laparoscopic hysterectomy. 2. Bilateral salpingectomy. 3. Cystoscopy. SURGEON: Nelson Melo MD OXYGEN SYSTEM TESTER: HARDY Nelson ANESTHESIA: General endotracheal anesthesia. ESTIMATED BLOOD LOSS: 50 mL. INTRAVENOUS FLUIDS: 1100mL lactated Ringer solution. URINE OUTPUT: 100mL. PREPROCEDURE ANTIBIOTICS: 2g Ancef OPERATIVE FINDINGS: The patient with normal-appearing bilateral adnexa and uterus CYSTOSCOPIC FINDING: Normal bladder mucosa, no foreign objects. Bilateral ureteral jets were observed. SPECIMEN: Uterus, cervix, bilateral fallopian tubes DESCRIPTION OF PROCEDURE: After informed consent was obtained and written consent was reviewed, the patient was brought to the operating room, where general endotracheal anesthesia was obtained. She was then placed in lithotomy position, was prepped and draped in a normal sterile fashion. A time-out in the operating room was then performed, identifying the patient, procedure to be performed, as well as drug allergies. A speculum was then placed, revealing the cervix. The anterior and posterior aspects of the cervix were stitched with a 0 Vicryl. The uterus was then sounded to 7cm. A large SetuServ uterine manipulator was then advanced through the cervical os for means to manipulate the uterus. The cervical cap was applied over the cervix, as well as the vaginal sleeve applied into the vagina. The speculum was removed from the patients vagina. A Weiss catheter was then placed and set to gravity. Gloves were changed, and attention was turned to the patients abdomen, where a Veress needle was placed through the umbilicus. A pneumoperitoneum was then obtained with CO2 gas. The supraumbilical area was infused with 0.25% Marcaine. An incision was made in this area, and a 8 mm trocar and sleeve was advanced through this incision. The laparoscope was then replaced, revealing intra-abdominal placement. Three additional port sites were placed, two to the left side of the patient's abdomen and one to the right. These areas was infused with 0.25% Marcaine. Each one of these areas, incisions were made, and 8 mm trocars and sleeves advanced through each one of these incisions under direct visualization. Next, the da Scarlett was then docked, utilizing a camera arm and two operative arms. The patient's abdomen was then surveyed with the above-noted finding. Bilateral salpingectomies were then performed. The fallopian tubes' mesosalpinx was cauterized and ligated with hemostasis noted. Next, the uteroovarian ligaments bilateral were cauterized and ligated with good hemostasis noted. The round ligaments bilaterally were cauterized and ligated with good hemostasis noted. The anterior and posterior aspects of broad ligaments were . The anterior leaf of the broad ligament was cauterized and ligated and dissected along the bladder, creating a bladder flap. The remainder of the broad and cardinal ligaments were then cauterized and ligated with good hemostasis noted. The uterine arteries were skeletonized bilaterally and were cauterized and transected with good hemostasis noted. Anterior and posterior colpotomies were made using monopolar scissors. The uterus was then brought out through the vaginal incision. The surgical sites were inspected and noted to be hemostatic. The vaginal cuff was then closed using 2-0 V-Loc system in a running fashion. Rain was then applied over the surgical field. The pneumoperitoneum was then released. Next, the cystoscopy was then performed. Utilizing a 70-degree cystoscope, it was advanced transurethrally through the bladder. The bladder was surveyed, showing normal bladder mucosa, no foreign bodies. The bilateral ureteral jets were observed. The cystoscope was then removed. The bladder was then drained. Gloves were changed. Attention was then turned to the patients abdomen, where all four port sites were closed with 4-0 Monocryl and dressed with Dermabond. The patient was then taken out of lithotomy position and was awakened from general anesthesia and taken to recovery in stable condition. Counts were correct. Cira Llanes, my assistant counsel, played a central role in the operation. She assisted with port placement, tissue retraction and identification, as well as wound closure. NELSON MELO MD. Jun 10, 2020 09:48
[2020-06-10] MEDS ORDERED: METOCLOPRAMIDE INJ 10MG/2ML VIAL (J2765 PER 1) IV PRN (10:00)
[2020-06-10] MEDS ORDERED: LR 1,000 ML IV SCH (10:00)
[2020-06-10] MEDS ORDERED: PERCOCET 5MG/325MG TAB PO PRN ×2 (10:00→10:30)
[2020-06-10] MEDS ORDERED: fentaNYL 100 MCG/2 ML INJECTION (J3010) IV PRN (10:00)
[2020-06-10] MEDS ORDERED: ONDANSETRON 4MG/2ML VIAL IV PRN (10:00)
[2020-06-10 14:25] VITALS: BP 130/70
[2020-06-10] MEDS ORDERED: KETOROLAC 30 MG/ML 1ML VIAL IV SCH (16:00)
== END 2020-06-10 15:12 | disposition home or self-care (01) ==
LOC: M SDC 06:08
PROVIDERS: ATTEND Obstetrics & Gynecology
DX: N92.0 Excessive and frequent menstruation with regular cycle (principal); N80.0 Endometriosis of uterus; D25.9 Leiomyoma of uterus, unspecified; Z91.040 Latex allergy status; Z87.891 Personal history of nicotine dependence
CPT/HCPCS: 36415; 58571; 81025; 85027; 86850; 86900; 86901; 88307; J0131; J0690; J1100; J1170; J1885; J2250; J2405; J3010; S2900

== ENCOUNTER → 2021-01-12 | Outpatient (CLI) | payer BC, OTHER ==
[~2021-01-12] MED LIST changes: -LR 1,000 ML IV ONE; -ceFAZolin SOD 2 GM in IV 1 EA IV ONE
[2021-01-12 16:57] LABS: BASO # 0.1 10^3/uL (0.0-0.2); BASO % 1.1 % (0.0-1.0); EOS # 0.2 10^3/uL (0.0-0.5); EOS % 3.3 % (0.0-3.0); HEMATOCRIT 43.3 % (36.0-47.0); HEMOGLOBIN 14.1 g/dl (12.0-15.5); LYMPH # 1.6 10^3/uL (1.5-5.0); LYMPH % 23.1 % (24.0-44.0); MEAN CORPUSCULAR HEMOGLOBIN 31.4 pg (27.0-33.0); MEAN CORPUSCULAR HGB CONC 32.6 g/dl (32.0-36.5); MEAN CORPUSCULAR VOLUME 96.4 fl (80.0-96.0); MONO # 0.4 10^3/uL (0.0-0.8); MONO % 6.1 % (2.0-8.0); NEUTROPHILS # 4.7 10^3/uL (1.5-8.5); NEUTROPHILS % 66.3 % (36.0-66.0); PLATELET COUNT, AUTOMATED 308 10^3/uL (150-450); RED BLOOD COUNT 4.49 10^6/uL (4.00-5.40); WHITE BLOOD COUNT 7.1 10^3/uL (4.0-10.0)
[2021-01-12 17:23] LABS: ALBUMIN 3.8 GM/DL (3.2-5.2); ALT/SGPT 26 U/L (12-78); AMYLASE 37 U/L (25-115); BILIRUBIN,TOTAL 0.5 MG/DL (0.2-1.0); BLOOD UREA NITROGEN 12 MG/DL (7-18); CALCIUM LEVEL 8.5 MG/DL (8.5-10.1); CARBON DIOXIDE LEVEL 26 MEQ/L (21-32); CHLORIDE LEVEL 107 MEQ/L (98-107); CHOLESTEROL LEVEL 224 MG/DL (<200); CHOLESTEROL RISK RATIO 6.054 (<5); CREATININE FOR GFR 0.82 MG/DL (0.55-1.30); GLOMERULAR FILTRATION RATE > 60.0 (>58); GLUCOSE, FASTING 86 MG/DL (70-100); HDL CHOLESTEROL 37 MG/DL (>40); LDL CHOLESTEROL 151 MG/DL (<100); LIPASE 143 U/L (73-393); NON-HDL-C 187 MG/DL; POTASSIUM SERUM 4.3 MEQ/L (3.5-5.1); SODIUM LEVEL 139 MEQ/L (136-145); TOTAL PROTEIN 7.3 GM/DL (6.4-8.2); TRIGLYCERIDES LEVEL 182 MG/DL (<150)
[2021-01-12 17:53] LABS: CA 125 8.2 U/ML (<30.2)
== END ==
LOC: M WUC 12:46
PROVIDERS: ATTEND Family Medicine
DX: Z13.29 Encounter for screening for other suspected endocrine disorder (principal); Z13.0 Encounter for screening for diseases of the blood and blood-forming organs and certain disorders involving the immune mechanism; Z13.220 Encounter for screening for lipoid disorders; R14.0 Abdominal distension (gaseous); R68.81 Early satiety; R14.2 Eructation; R11.0 Nausea

== ENCOUNTER → 2021-01-17 | Outpatient (CLI) | payer BC, OTHER ==
[~2021-01-17] MED LIST changes: +GASTROGRAFIN SOLUTION 30ML (Q9963) As Ordered ONE; +ISOVUE-370 76% 100ML VIAL As Ordered ONE
--- NOTE | 2021-01-17 14:21 | REP ---
INDICATION: EARLY SATIETY, BLOATING, NAUSEA. COMPARISON: None. TECHNIQUE: Standard helical technique after the intravenous administration of 100 cc Isovue 370 and oral bowel preparatory contrast administration. FINDINGS: The lung bases are clear. Subtle focal decreased density seen in the liver medial segment left lobe. There are no enhancing hepatic lesions. The gallbladder, spleen, pancreas, adrenal glands, and kidneys are within normal limits. The abdominal aorta and para-aortic regions are within normal limits. The bowel loops and the mesenteries are within normal limits. There is no evidence of a mass or adenopathy. There is no free fluid or free air. The osseous structures are within normal limits. IMPRESSION: There is a subtle degree of decreased density in the liver as described above likely a small area of focal fatty infiltration. There are no enhancing hepatic lesions. The examination is otherwise unremarkable. If the patient is experiencing symptoms referable to the liver than I would recommend follow-up with pre and post gadolinium enhanced hepatic MRI. <Electronically signed by Joe Messer > 01/17/21 [id number]
== END ==
LOC: M RAD 12:13
PROVIDERS: ATTEND Family Medicine
DX: R68.81 Early satiety (principal); R11.0 Nausea; R14.0 Abdominal distension (gaseous); K76.0 Fatty (change of) liver, not elsewhere classified
CPT/HCPCS: 74177; Q9963; Q9967

== ENCOUNTER → 2021-02-09 | Outpatient (CLI) | payer BC ==
[~2021-02-09] MED LIST changes: -GASTROGRAFIN SOLUTION 30ML (Q9963) As Ordered ONE; -ISOVUE-370 76% 100ML VIAL As Ordered ONE
--- NOTE | 2021-02-09 09:00 | REPMRS ---
Patient History The patient states she has not had a clinical breast exam in over a year. Family history of breast cancer at age 40 in maternal aunt, colorectal cancer in maternal grandmother, breast cancer at age 60 in paternal grandmother. 6 lb weight loss. Pt denied . Patient states no breast complaints today. Patient has signed MRS History Sheet. Digital Woman Screen Mammo: February 09, 2021 - Exam #: [id number] Bilateral CC and MLO view(s) were taken. Technologist: RT Livan Prior study comparison: January 20, 2020, bilateral digital woman screen mammo performed at [facility] [place]. August 19, 2018, bilateral digital mammo screening bilat, performed at [facility]. FINDINGS: There are scattered fibroglandular densities. Screening. Digital screening (2D) mammography was performed bilaterally in the CC and MLO projections. Additionally, breast tomosynthesis (3D mammography) was performed bilaterally in the CC and MLO projections. Todays exam was compared to the prior exam/exams. By history, the patient has no complaints of a palpable breast abnormality or other significant breast complaints. The breasts are unchanged in size and shape. There are no dragan-soft tissue densities or spiculated masses. There is no internal architectural distortion. There are no suspicious dragan-calcific clusters. Skin thickening or nipple retraction is not present. IMPRESSION: BI-RADS Category 2- Benign Findings. There is no evidence of malignant alteration of the breasts. Followup examination recommended in one year. The Volpara volumetric breast density category is B, there are scattered areas of fibroglandular densities. This mammogram was read with the assistance of [facility],an FDA approved computer aided detection system for mammography. The lifetime Tyrer-Cuzick score is 15.9 % Negative x-ray reports should not delay surgical consultation if a dominant or clinically suspicious mass is present. Not all breast cancers can be identified by mammography. Therefore, we recommend that you continue to perform regular breast self-examination and physical examination and then promptly contact your physician of any concerns or changes. Adenosis and dense breasts may obscure an underlying neoplasm. Assessment: BI-RADS/ACR category 2 mammogram. Benign Findings. Recommendation Routine screening mammogram of both breasts in 1 year. Electronically Signed By: Joe Messer DO 02/09/21 [id number]
== END ==
LOC: M WHC 07:55
PROVIDERS: ATTEND Family Medicine
DX: Z12.31 Encounter for screening mammogram for malignant neoplasm of breast (principal)

== ENCOUNTER → 2021-02-22 | Outpatient (CLI) | payer BC, OTHER ==
[~2021-02-22] MED LIST changes: +PROHANCE 279.3MG/ML 15ML VIAL As Ordered ONE
--- NOTE | 2021-02-22 09:52 | REP ---
INDICATION: LIVER NEOPLASM ABN IMAG CT. COMPARISON: Comparison CT study January 17, 2021 showed a low-density area in the liver. TECHNIQUE: Axial and coronal T1 and T2 weighted sequences include spin echo, fast spin echo, diffusion, gradient echo, in and out of phase, and dynamically acquired sequential postcontrast images. Gadolinium enhancement dose is 14 mL of intravenous ProHance. FINDINGS: Precontrast T2 weighted and diffusion scans show no evidence of focal liver mass lesion. There is no evidence of intrahepatic or extrahepatic biliary ductal dilation. No pancreatic or common bile duct dilation. There is no evidence of cholelithiasis. Gradient echo and out of phase images demonstrate a localized area of decreased signal intensity in the central area of the liver where prior CT study showed low-density. This is consistent with focal fatty infiltration. Dynamically acquired post contrast images show no evidence of hypervascular liver lesion. Spleen is unremarkable. No adrenal lesion is observed on either side. No renal mass is seen. IMPRESSION: There is a focal area of benign fatty infiltration of the liver. Otherwise negative MRI study of the upper abdomen. <Electronically signed by Danny Marina > 02/22/21 [id number]
== END ==
LOC: M RAD 07:39
PROVIDERS: ATTEND Family Medicine
DX: D49.0 Neoplasm of unspecified behavior of digestive system (principal); K76.0 Fatty (change of) liver, not elsewhere classified
CPT/HCPCS: 74183; A9576

== ENCOUNTER → 2021-07-24 | Outpatient (CLI) | payer BC, OTHER ==
[~2021-07-24] MED LIST changes: +HAIRTAB15 PO; +LINZ290C PO; +OMEP40CA5 PO; -PROHANCE 279.3MG/ML 15ML VIAL As Ordered ONE
== END ==
LOC: M LABSMTC 10:48
PROVIDERS: ATTEND Anesthesiology
DX: Z01.818 Encounter for other preprocedural examination (principal); Z11.52 Encounter for screening for COVID-19

== ENCOUNTER 2021-07-28 10:25 | Day surgery (SDC) | payer BC, OTHER ==
[~2021-07-28] VITALS: Ht 167.6 cm; Wt 75.7 kg
[~2021-07-28 10:25] MED LIST changes: +NS 1,000 ML IV ONE
[2021-07-28] MEDS ORDERED: LIDOCAINE 2% 100MG/5ML SDV (FOR ANES.) As Ordered ONE (12:08)
[2021-07-28] MEDS ORDERED: propofoL 500 MG/50 ML VIAL As Ordered ONE (12:08)
[2021-07-28] MEDS ORDERED: fentaNYL 100 MCG/2 ML INJECTION As Ordered ONE (12:08)
[2021-07-28 13:00] VITALS: BP 93/75
== END 2021-07-28 13:16 | disposition home or self-care (01) ==
LOC: M OPP 10:25
PROVIDERS: ATTEND Internal Medicine Gastroenterology
DX: K58.1 Irritable bowel syndrome with constipation (principal); R19.4 Change in bowel habit; R10.84 Generalized abdominal pain; K31.89 Other diseases of stomach and duodenum; R14.0 Abdominal distension (gaseous); K30 Functional dyspepsia; Z79.899 Other long term (current) drug therapy; Z88.8 Allergy status to other drugs, medicaments and biological substances; Z91.040 Latex allergy status; Z87.891 Personal history of nicotine dependence
CPT/HCPCS: 43239; 45380; 88305; J3010

== ENCOUNTER → 2022-07-05 | Outpatient (CLI) | payer BC, OTHER ==
[~2022-07-05] MED LIST changes: -NS 1,000 ML IV ONE
== END ==
LOC: M WHC 10:40
PROVIDERS: ATTEND Family Medicine
DX: Z12.31 Encounter for screening mammogram for malignant neoplasm of breast (principal)

== ENCOUNTER → 2023-04-29 | Outpatient (CLI) | payer BC, OTHER ==
[2023-04-29 11:36] LABS: LUTEINIZING HORMONE 8.3 mIU/ML
[2023-04-29 11:37] LABS: ESTRADIOL 59.9 PG/ML; PROGESTERONE 12.53 NG/ML
== END ==
LOC: M WUC 08:29
PROVIDERS: ATTEND Advanced Practice Midwife
DX: N95.1 Menopausal and female climacteric states (principal); G47.00 Insomnia, unspecified; R45.86 Emotional lability

== ENCOUNTER → 2023-05-01 | Outpatient (CLI) | payer BC, OTHER ==
[2023-05-01 14:09] LABS: LUTEINIZING HORMONE 5.4 mIU/ML
[2023-05-01 14:40] LABS: FOLLICLE STIMULATING HORMONE 7.3 mIU/ML
== END ==
LOC: M PLALAB 10:22
PROVIDERS: ATTEND Advanced Practice Midwife
DX: N95.1 Menopausal and female climacteric states (principal); G47.00 Insomnia, unspecified; R45.86 Emotional lability; Z80.3 Family history of malignant neoplasm of breast; Z80.0 Family history of malignant neoplasm of digestive organs

== ENCOUNTER → 2023-11-19 | Outpatient (CLI) | payer BC | LOC: M WHC 07:36 | PROVIDERS: ATTEND Family Medicine | DX: Z12.31 Encounter for screening mammogram for malignant neoplasm of breast (principal) ==

== ENCOUNTER → 2024-01-06 | Outpatient (CLI) | payer BC ==
[2024-01-06 17:22] LABS: ALKALINE PHOSPHATASE 60 U/L (46-116); ALT/SGPT 27 U/L (7.0-40); AST/SGOT 18 U/L (<34); BILIRUBIN,TOTAL 0.6 MG/DL (0.3-1.2); BLOOD UREA NITROGEN 11 MG/DL (9-23); CALCIUM LEVEL 8.9 MG/DL (8.5-10.1); CARBON DIOXIDE LEVEL 29 MMOL/L (20-31); CHLORIDE LEVEL 107 MMOL/L (98-107); CHOLESTEROL LEVEL 196 MG/DL (<200); CHOLESTEROL RISK RATIO 4.46 (<5); CREATININE FOR GFR 0.82 MG/DL (0.55-1.30); GLOMERULAR FILTRATION RATE > 60.0 (>58); GLUCOSE, FASTING 83 MG/DL (60-100); HDL CHOLESTEROL 43.9 MG/DL (>40); LDL CHOLESTEROL 117.7 MG/DL (<100); NON-HDL-C 152.1 MG/DL; POTASSIUM SERUM 4.2 MMOL/L (3.5-5.1); SODIUM LEVEL 138 MMOL/L (136-145); TOTAL PROTEIN 7.1 G/DL (5.7-8.2); TRIGLYCERIDES LEVEL 172 MG/DL (<150)
[2024-01-06 17:23] LABS: BASO # 0.1 10^3/uL (0.0-0.2); BASO % 0.8 % (0.0-1.0); EOS # 0.2 10^3/uL (0.0-0.5); EOS % 2.9 % (0.0-3.0); HEMATOCRIT 43.1 % (36.0-47.0); HEMOGLOBIN 14.1 g/dl (12.0-15.5); LYMPH # 1.7 10^3/uL (1.5-5.0); LYMPH % 22.1 % (24.0-44.0); MEAN CORPUSCULAR HEMOGLOBIN 32.3 pg (27.0-33.0); MEAN CORPUSCULAR HGB CONC 32.7 g/dl (32.0-36.5); MEAN CORPUSCULAR VOLUME 98.9 fl (80.0-96.0); MONO # 0.5 10^3/uL (0.0-0.8); MONO % 6.1 % (2.0-8.0); NEUTROPHILS # 5.1 10^3/uL (1.5-8.5); NEUTROPHILS % 67.8 % (36.0-66.0); PLATELET COUNT, AUTOMATED 338 10^3/uL (150-450); RED BLOOD COUNT 4.36 10^6/uL (4.00-5.40); WHITE BLOOD COUNT 7.5 10^3/uL (4.0-10.0)
[2024-01-06 17:25] LABS: FREE T4 0.92 NG/DL (0.89-1.76); THYROID STIMULATING HORMONE 1.282 uIU/ML (0.55-4.78)
== END ==
LOC: M WUC 12:36
PROVIDERS: ATTEND Family Medicine
DX: Z13.29 Encounter for screening for other suspected endocrine disorder (principal); Z13.0 Encounter for screening for diseases of the blood and blood-forming organs and certain disorders involving the immune mechanism; Z13.220 Encounter for screening for lipoid disorders